=== PATIENT | male | born 1965 | race Caucasian/White ===

== ENCOUNTER 2016-08-11 00:13 | Emergency (ER) | payer OTHER ==
[~2016-08-11 00:13] MED LIST: CARV12.5 PO; CHLO125TA PO; LISI-538 PO; OMEG100011 PO; OSTETAB3 PO; VITAD1000T PO
--- NOTE | 2016-08-11 02:00 | REPUSA ---
CLINICAL HISTORY: Neck pain. TECHNIQUE: Multiple axial images were obtained through the cervical spine. Images were also reconstru cted in coronal and sagittal planes. The study was performed without IV contrast. COMMENTS: There is no fracture or spondylolisthesis visualized. The paraspinal soft tissues are unremarkable. T here are no lytic or blastic lesions. Straightening of cervical lordosis is seen, suggesting muscular spasm. There is evidence of minimal m ultilevel disk disease, demonstrated by minimal osteophytosis and endplate sclerosis. No significant disk herniation is noted at any level. Canal and foramina remain patent. IMPRESSION: 1. No fracture or spondylolisthesis. 2. Straightening of cervical lordosis is seen, suggesting muscular spasm. 3. Minimal multilevel spondylosis. Thank you for your kind referral of this patient.
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
== END 2016-08-11 02:36 | disposition home or self-care (01) ==
LOC: M ED 00:13
DX: Z04.1 Encounter for examination and observation following transport accident (principal); R53.1 Weakness; I10 Essential (primary) hypertension; Z79.899 Other long term (current) drug therapy

== ENCOUNTER → 2016-08-23 | Outpatient (CLI) | payer OTHER ==
[2016-08-23 08:46] LABS: ANION GAP 7 MEQ/L (8-16); BLOOD UREA NITROGEN 17 MG/DL (7-18); CALCIUM LEVEL 8.5 MG/DL (8.5-10.1); CARBON DIOXIDE LEVEL 30 MEQ/L (21-32); CHLORIDE LEVEL 109 MEQ/L (98-107); CREATININE FOR GFR 1.22 MG/DL (0.70-1.30); GLOMERULAR FILTRATION RATE > 60.0 (>56); GLUCOSE, FASTING 89 MG/DL (70-105); POTASSIUM SERUM 4.1 MEQ/L (3.5-5.1); SODIUM LEVEL 146 MEQ/L (136-145)
--- NOTE | 2016-08-23 11:25 | REP ---
RIGHT UPPER QUADRANT SONOGRAPHY: HISTORY: Hepatic cyst. Comparison sonography, September 24, 2015 found a cystic area in the left lobe of the liver. Comparison is also made with today's CT study of the chest. SONOGRAPHIC FINDINGS: Scanning through the right upper quadrant of the abdomen demonstrates a normal sized, thin-walled gallbladder without evidence of stone or polyp. Common bile duct is normal measuring 0.2 cm in greatest diameter. Two left hepatic cysts are seen measuring 2.0 x 2.1 x 1.5 cm and 1.6 x 1.0 x 1.4 cm. These are felt to be unchanged from comparison MR study from November 13, 2015. They are adjacent to one another. No other hepatic lesion is seen. Limited views of the pancreas show no abnormality. The right kidney measures 10.8 x 4.9 x 5.2 cm. There is a 1.6 x 1.4 x 1.2 cm cyst again seen in the upper pole of the right kidney, also unchanged. IMPRESSION: Stable small cysts in the left lobe of the liver and upper pole of the right kidney. Signed by Duran Mckeon MD 08/23/2016 02:01 P
--- NOTE | 2016-08-23 11:34 | REP ---
CT CHEST WITHOUT IV CONTRAST: CT chest is performed without IV contrast and compared to prior CT angiogram 09/10/2015. There is a calcified granuloma peripherally in the right middle lobe. The amount of internal calcification appears to have increased since the prior study. A few small calcified lymph nodes are seen in the right hilar and subcarinal regions. No suspicious adenopathy is seen in the chest. The heart is normal in size. There is no pleural or pericardial effusion. No other abnormal parenchymal opacity is seen. There is no aneurysm of the thoracic aorta. Cyst is again seen in the left lobe of the liver and there is a small cyst in the upper pole of the right kidney. No other upper abdominal abnormality is seen. IMPRESSION: Benign calcified granuloma right middle lobe peripherally with a few small calcified right hilar lymph nodes. Signed by Akil El MD 08/23/2016 05:03 P
== END ==
LOC: M LAB 07:26 → M RAD 07:26
PROVIDERS: ATTEND Family Medicine
DX: K76.89 Other specified diseases of liver (principal); N28.1 Cyst of kidney, acquired; J84.10 Pulmonary fibrosis, unspecified; I10 Essential (primary) hypertension

== ENCOUNTER → 2017-10-06 | Outpatient (CLI) | payer OTHER ==
[2017-10-06 08:07] LABS: ANION GAP 6 MEQ/L (8-16); BLOOD UREA NITROGEN 26 MG/DL (7-18); CALCIUM LEVEL 8.3 MG/DL (8.5-10.1); CARBON DIOXIDE LEVEL 28 MEQ/L (21-32); CHLORIDE LEVEL 111 MEQ/L (98-107); CREATININE FOR GFR 1.24 MG/DL (0.70-1.30); GLOMERULAR FILTRATION RATE > 60.0 (>56); GLUCOSE, FASTING 97 MG/DL (70-100); POTASSIUM SERUM 4.3 MEQ/L (3.5-5.1); SODIUM LEVEL 145 MEQ/L (136-145)
== END ==
LOC: M LAB 06:57
DX: I10 Essential (primary) hypertension (principal)
CPT/HCPCS: 80048

== ENCOUNTER → 2017-10-24 | Outpatient (CLI) | payer OTHER | LOC: M RAD 13:10 | DX: R91.1 Solitary pulmonary nodule (principal) | CPT/HCPCS: 71250 ==

== ENCOUNTER → 2018-04-13 | Outpatient (REF) | payer OTHER | LOC: M SFHCPLAZ 11:11 | DX: I10 Essential (primary) hypertension (principal) ==

== ENCOUNTER → 2020-03-30 | Outpatient (REF) | payer OTHER ==
[~2020-03-30] MED LIST changes: +CHOL100029 PO; -VITAD1000T PO
[2020-03-30 13:31] LABS: BILIRUBIN,TOTAL 0.6 MG/DL (0.2-1.0); CALCIUM LEVEL 8.9 MG/DL (8.5-10.1); CHOLESTEROL RISK RATIO 3.363 (<5); CREATININE FOR GFR 1.42 MG/DL (0.70-1.30); GLOMERULAR FILTRATION RATE 54.9 (>56); POTASSIUM SERUM 4.4 MEQ/L (3.5-5.1); TOTAL PROTEIN 6.9 GM/DL (6.4-8.2)
[2020-03-30 13:47] LABS: TOTAL 25(OH) VITAMIN D 32.5 NG/ML (30.0-100.0)
== END ==
LOC: M SFHCPLAZ 08:29
PROVIDERS: ATTEND Internal Medicine
DX: I10 Essential (primary) hypertension (principal); Z13.220 Encounter for screening for lipoid disorders; E55.9 Vitamin D deficiency, unspecified

== ENCOUNTER → 2023-11-15 | Outpatient (CLI) | payer OTHER ==
[~2023-11-15] MED LIST changes: -LISI-538 PO; +LISI20TA33 PO
[2023-11-15 06:44] LABS: HEMOGLOBIN A1c 5.1 % (4.0-6.0)
[2023-11-15 06:54] LABS: CREATININE, URINE 154.8 MG/DL; MALB URINE SIEMENS < 3.0 MG/L; MAU/CREAT RATIO 1.9 MCG/MG (0.0-30.0)
[2023-11-15 06:55] LABS: ALBUMIN 3.7 G/DL (3.2-5.2); ALKALINE PHOSPHATASE 59 U/L (46-116); ALT/SGPT 22 U/L (7.0-40); AST/SGOT 17 U/L (<34); BILIRUBIN,TOTAL 0.7 MG/DL (0.3-1.2); BLOOD UREA NITROGEN 26 MG/DL (9-23); CALCIUM LEVEL 8.8 MG/DL (8.5-10.1); CARBON DIOXIDE LEVEL 23 MMOL/L (20-31); CHLORIDE LEVEL 110 MMOL/L (98-107); CHOLESTEROL LEVEL 171 MG/DL (<200); CREATININE FOR GFR 1.16 MG/DL (0.70-1.30); GLOMERULAR FILTRATION RATE > 60.0 (>56); GLUCOSE, FASTING 103 MG/DL (60-100); HDL CHOLESTEROL 42.7 MG/DL (>40); LDL CHOLESTEROL 103.5 MG/DL (<100); NON-HDL-C 128.3 MG/DL; SODIUM LEVEL 141 MMOL/L (136-145); TOTAL PROTEIN 6.4 G/DL (5.7-8.2); TRIGLYCERIDES LEVEL 124 MG/DL (<150)
[2023-11-15 06:57] LABS: TOTAL 25(OH) VITAMIN D 36.2 NG/ML (20.0-100.0)
== END ==
LOC: M LAB 06:04
PROVIDERS: ATTEND Student in an Organized Health Care Education/Training Program
DX: I12.9 Hypertensive chronic kidney disease with stage 1 through stage 4 chronic kidney disease, or unspecified chronic kidney disease (principal); Z13.1 Encounter for screening for diabetes mellitus; N18.31 Chronic kidney disease, stage 3a; E55.9 Vitamin D deficiency, unspecified

== ENCOUNTER → 2024-09-23 | Outpatient (CLI) | payer OTHER ==
[~2024-09-23] MED LIST changes: +AMLO1TAB24 PO; +NOXI1TAB PO; +OMEGCAP4 PO; +OSTETAB2 PO
[2024-09-23 07:24] LABS: HEMOGLOBIN A1c 4.7 % (4.0-6.0)
[2024-09-23 07:40] LABS: CHOLESTEROL LEVEL 174 MG/DL (<200); CHOLESTEROL RISK RATIO 3.32 (<5); HDL CHOLESTEROL 52.4 MG/DL (>40); LDL CHOLESTEROL 105.8 MG/DL (<100); NON-HDL-C 121.6 MG/DL; TRIGLYCERIDES LEVEL 79 MG/DL (<150)
[2024-09-23 07:43] LABS: RHEUMATOID FACTOR QUANT < 3.5 IU/ML (<14)
== END ==
LOC: M LAB 06:35
DX: Z00.00 Encounter for general adult medical examination without abnormal findings (principal); M19.90 Unspecified osteoarthritis, unspecified site

== ENCOUNTER 2024-10-03 07:12 | Day surgery (SDC) | payer OTHER ==
[~2024-10-03] VITALS: Ht 175.3 cm; Wt 92.5 kg
[~2024-10-03 07:12] MED LIST changes: +MIDAZOLAM INJ 2MG/2ML VIAL As Ordered ONE; +PHENYLEPHRINE 10% OPHTH SOL 5ML OD PRN; +fentaNYL 100 MCG/2 ML INJECTION As Ordered ONE
[2024-10-03] MEDS: TROPICAMIDE 1% OPHTH SOLN 15ML OD SCH (07:52)
[2024-10-03] MEDS: LIDOCAINE 3.5 % 1ML OPHTH TOPICAL GEL OU ONE (07:52)
[2024-10-03] MEDS: CYCLOPENTOLATE 1% OPHTH SOLN 2ML BTL OD SCH (07:52)
[2024-10-03] MEDS: PHENYLEPHRINE 2.5% OPHTH SOL 2ML OD SCH (07:52)
[2024-10-03] MEDS: OFLOXACIN 0.3 % (OCUFLOX) OPTH SOL 5ML OD ONE (07:52)
[2024-10-03] MEDS: BSS IRRIG/VANCO(10MG)/TOBRA(5MG)/EPINEPH(1:1000-0.5CC)500ML BAG-ORONLY As Ordered ONE (08:43)
[2024-10-03] MEDS: CEFUROXIME 1MG/0.1ML INTRACAMERAL INJ As Ordered ONE (08:43)
[2024-10-03] MEDS: LIDOCAINE 1% SDV 5ML VIAL As Ordered ONE (08:43)
[2024-10-03 08:55] VITALS: BP 132/82; TEMP 97.4; O2SAT 93
== END 2024-10-03 09:25 | disposition home or self-care (01) ==
LOC: M SDC 07:12
PROVIDERS: ATTEND Ophthalmology
DX: H25.11 Age-related nuclear cataract, right eye (principal); G47.30 Sleep apnea, unspecified; I12.9 Hypertensive chronic kidney disease with stage 1 through stage 4 chronic kidney disease, or unspecified chronic kidney disease; N18.30 Chronic kidney disease, stage 3 unspecified; Z79.899 Other long term (current) drug therapy; F12.10 Cannabis abuse, uncomplicated
CPT/HCPCS: 66984; J0697; J2250; J3010; V2632

== ENCOUNTER 2024-10-10 07:29 | Day surgery (SDC) | payer OTHER ==
[~2024-10-10] VITALS: Ht 175.3 cm; Wt 93.9 kg
[~2024-10-10 07:29] MED LIST changes: -MIDAZOLAM INJ 2MG/2ML VIAL As Ordered ONE; -PHENYLEPHRINE 10% OPHTH SOL 5ML OD PRN; +PHENYLEPHRINE 10% OPHTH SOL 5ML OS PRN; -fentaNYL 100 MCG/2 ML INJECTION As Ordered ONE
[2024-10-10] MEDS ORDERED: MIDAZOLAM INJ 2MG/2ML VIAL As Ordered ONE (08:20)
[2024-10-10] MEDS ORDERED: fentaNYL 100 MCG/2 ML INJECTION As Ordered ONE (08:20)
[2024-10-10] MEDS: OFLOXACIN 0.3 % (OCUFLOX) OPTH SOL 5ML OS ONE (08:46)
[2024-10-10] MEDS: TROPICAMIDE 1% OPHTH SOLN 15ML OS SCH (08:46)
[2024-10-10] MEDS: PHENYLEPHRINE 2.5% OPHTH SOL 2ML OS SCH (08:46)
[2024-10-10] MEDS: LIDOCAINE 3.5 % 1ML OPHTH TOPICAL GEL OU ONE (08:46)
[2024-10-10] MEDS: CYCLOPENTOLATE 1% OPHTH SOLN 2ML BTL OS SCH (08:47)
[2024-10-10] MEDS ORDERED: ONDANSETRON 4MG 2ML VIAL As Ordered ONE (09:34)
[2024-10-10] MEDS: BSS IRRIG/VANCO(10MG)/TOBRA(5MG)/EPINEPH(1:1000-0.5CC)500ML BAG-ORONLY As Ordered ONE (09:42)
[2024-10-10] MEDS: LIDOCAINE 1% SDV 5ML VIAL As Ordered ONE (09:42)
[2024-10-10] MEDS: CEFUROXIME 1MG/0.1ML INTRACAMERAL INJ As Ordered ONE (09:42)
[2024-10-10 09:52] VITALS: BP 123/82; TEMP 97; O2SAT 98
== END 2024-10-10 10:10 | disposition home or self-care (01) ==
LOC: M SDC 07:29
PROVIDERS: ATTEND Ophthalmology
DX: H25.12 Age-related nuclear cataract, left eye (principal); I12.9 Hypertensive chronic kidney disease with stage 1 through stage 4 chronic kidney disease, or unspecified chronic kidney disease; N18.31 Chronic kidney disease, stage 3a; G47.30 Sleep apnea, unspecified; R91.1 Solitary pulmonary nodule; Z79.899 Other long term (current) drug therapy
CPT/HCPCS: 66984; J0697; J1100; J2250; J2405; J3010; V2632